=== PATIENT | male | born 1955 | race Caucasian/White ===

== ENCOUNTER 2020-12-15 06:47 | Emergency (ER) | payer BC ==
[2020-12-15] MEDS ORDERED: Aspirin 81 MG Tab.Chew ONE (06:57)
[2020-12-15] MEDS ORDERED: HYDROmorphone 1 MG/ML Syringe IVPUSH ONE (07:11)
[2020-12-15] MEDS ORDERED: Metoclopramide 10 MG/2 ML SDV IVPUSH ONE (07:11)
--- NOTE | 2020-12-15 07:11 | EDM.PDOC ---
ED HPI GENERAL MEDICAL PROBLEM - General Chief Complaint: Chest Pain Stated Complaint: CHEST PAIN Time Seen by Provider: 12/15/20 07:01 Source of Information: Reports: Patient History Limitations: Reports: No Limitations - History of Present Illness INITIAL COMMENTS - FREE TEXT/NARRATIVE: 65 year old male presents to the ED at 0655 hrs this am. he re[ports developing central chest pain /preasure while eating his breakfast at local restaurant this am. He reports he has had 3-4 cups of coffee and ate about 3/4 of his breakfast before the pain started. He lost color and friends asked if he was feeling OK.Pain central chest radiating to the Lt medial arm. No nausea or vomiting. Pain now is a little worse than when it started and he reports it to be 5/10.No past history or family history of heart disease. Over weight. Hypertensive. Quit smoking cigarettes in 1992. Onset: Today, Sudden Onset Date: 12/15/20 Onset Time: 06:00 Duration: Minutes:, Getting Worse Location: Reports: Chest Quality: Reports: Ache, Pressure Severity: Moderate Improves with: Reports: None Worsens with: Reports: None Context: Denies: Activity, Exercise, Lifting, Sick Contact, Trauma, Other Associated Symptoms: Reports: Chest Pain, Diaphoresis, Loss of Appetite, Weakness, Other. 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 (see below) Chest Pain Score (Numeric/FACES): 4 - Related Data Allergies Allergy/AdvReac Type Severity Reaction Status Date / Time No Known Allergies Allergy Verified 12/15/20 07:07 Past Medical History Cardiovascular History: Reports: Hypertension - Past Surgical History GI Surgical History: Reports: Appendectomy Musculoskeletal Surgical History: Reports: ORIF Social & Family History - Tobacco Use Tobacco Use Status *Q: Former Tobacco User (quit 1991) - Alcohol Use Alcohol Use History: Yes Days Per Week of Alcohol Use: 2 - Living Situation & Occupation Living situation: Reports: Occupation: Employed ED ROS GENERAL - Review of Systems Review Of Systems: See Below Constitutional: Reports: Diaphoresis. Denies: Fever, Chills, Malaise, Weakness, Fatigue, Decreased Appetite, Weight Loss HEENT: Reports: No Symptoms Respiratory: Reports: Shortness of Breath. Denies: Wheezing, Pleuritic Chest Pain, Cough, Sputum, Hemoptysis Cardiovascular: Reports: Chest Pain, Blood Pressure Problem, Dyspnea on Exertion (sometimes). Denies: Claudication, Edema, Lightheadedness, Orthopnea Endocrine: Reports: No Symptoms GI/Abdominal: Reports: No Symptoms : Reports: Frequency, Other Musculoskeletal: Reports: Back Pain, Joint Pain, Muscle Stiffness Skin: Reports: No Symptoms Neurological: Reports: No Symptoms Psychiatric: Reports: No Symptoms Hematologic/Lymphatic: Reports: No Symptoms Immunologic: Reports: No Symptoms ED EXAM, GENERAL - Physical Exam Exam: See Below Exam Limited By: No Limitations General Appearance: Alert, WD/WN, Mild Distress, Other (vitals reveal a temp of 35.5. Heart rate of 95 and respiratory rate of 20 with 02 sats of 99% on room air. BP136/101.) #1 Interpretation EKG Date: 12/15/20 Time: 06:55 Rhythm: NSR Rate (Beats/Min): 78 [place]: Normal P-Wave: Present QRS: Other ST-T: Other (Diffuse repolarization pattern. marked elevationST segment depression with T wave inversion leads V1 and V2.ST segment elevation leads 2,3 and AVF) QT: Normal EKG Interpretation Comments: Abnormal ECG. Acute infro posterior wall ND. Course - Vital Signs Last Recorded V/S: Last Vital Signs Temp 35.5 C L 12/15/20 07:02 Pulse 95 12/15/20 07:02 Resp 20 12/15/20 07:02 BP 136/101 H 12/15/20 07:02 Pulse Ox 99 12/15/20 07:02 - Orders/Labs/Meds Orders: Active Orders 24 hr Category Date Time Status EKG 12 Lead [EKG Documentation Completion] [RC] STAT Care 12/15/20 07:09 Active Chest 1V Frontal [CR] Stat Exams 12/15/20 07:04 Taken URINALYSIS W/MICROSCOPIC [UA W/MICROSCOPIC] [URIN] Stat Lab 12/15/20 07:25 Ordered Heparin Sodium/D5W [Heparin 25,000 Units in D5W 500 ML] Med 12/15/20 07:15 Active 25,000 units in 500 ml IV TITRATE Nitroglycerin/D5W [Nitroglycerin 25 MG/D5W 250 ML] Med 12/15/20 07:15 Active 25 mg in 250 ml IV TITRATE Sodium Chloride 0.9% [Normal Saline] 1,000 ml Med 12/15/20 07:15 Active IV ASDIRECTED Medication Orders Sodium Chloride (Normal Saline) 1,000 mls @ 100 mls/hr IV ASDIRECTED МАРИЯ Last Admin: 12/15/20 07:14 Dose: 100 mls/hr Documented by: BOBY Nitroglycerin/Dextrose (Nitroglycerin 25 Mg/D5w 250 Ml) 25 mg in 250 mls @ 6 mls/hr IV TITRATE МАРИЯ; Protocol Last Titration: 12/15/20 08:08 Dose: 20 mcg/min, 12 mls/hr Documented by: Titration: 12/15/20 07:57 Dose: 15 mcg/min, 9 mls/hr Documented by: Admin: 12/15/20 07:20 Dose: 10 mcg/min, 6 mls/hr Documented by: BOBY Heparin Sodium/Dextrose (Heparin 25,000 Units In D5w 500 Ml) 25,000 units in 500 mls @ 20 mls/hr IV TITRATE МАРИЯ Last Admin: 12/15/20 07:20 Dose: 1,000 units/hr, 20 mls/hr Documented by: BOBY Cosigned by: HONEY Labs: Laboratory Tests 12/15/20 12/15/20 12/15/20 Range/Units 06:45 06:45 06:45 WBC 8.95 (4.23-9.07) K/mm3 RBC 5.37 (4.63-6.08) M/mm3 Hgb 16.0 (13.7-17.5) gm/dl Hct 50.6 (40.1-51.0) % MCV 94.2 H (79.0-92.2) fl MCH 29.8 (25.7-32.2) pg MCHC 31.6 L (32.2-35.5) g/dl RDW Std Deviation 48.0 H (35.1-43.9) fL Plt Count 167 (163-337) K/mm3 MPV 12.2 (9.4-12.3) fl Neut % (Auto) 58.4 (34.0-67.9) % Lymph % (Auto) 22.7 (21.8-53.1) % [place] % (Auto) 15.8 H (5.3-12.2) % Eos % (Auto) 2.2 (0.8-7.0) Baso % (Auto) 0.6 (0.1-1.2) % Neut # (Auto) 5.23 (1.78-5.38) K/mm3 Lymph # (Auto) 2.03 (1.32-3.57) K/mm3 [place] # (Auto) 1.41 H (0.30-0.82) K/mm3 Eos # (Auto) 0.20 (0.04-0.54) K/mm3 Baso # (Auto) 0.05 (0.01-0.08) K/mm3 PT 10.6 (9.7-12.0) SECONDS INR 0.99 APTT (21.7-31.4) SECONDS Sodium 142 (136-145) mEq/L Potassium 3.6 (3.5-5.1) mEq/L Chloride 104 (98-107) mEq/L Carbon Dioxide 29 (21-32) mEq/L Anion Gap 12.6 (5-15) BUN 13 (7-18) mg/dL Creatinine 1.0 (0.7-1.3) mg/dL Est Cr Clr Drug Dosing 67.34 mL/min Estimated GFR (MDRD) > 60 (>60) mL/min BUN/Creatinine Ratio 13.0 L (14-18) Glucose 111 (80-115) mg/dL Calcium 8.8 (8.5-10.1) mg/dL Magnesium 2.0 (1.8-2.4) mg/dl Total Bilirubin 0.9 (0.2-1.0) mg/dL AST 28 (15-37) U/L ALT 50 (16-63) U/L Alkaline Phosphatase 67 (46-116) U/L CK-MB (CK-2) 1.5 (0-3.6) ng/ml Troponin I 0.021 (0.00-0.056) ng/mL C-Reactive Protein 0.8 (<1.0) mg/dL NT-Pro-B Natriuret Pep (0-125) pg/mL Total Protein 7.6 (6.4-8.2) g/dl Albumin 3.7 (3.4-5.0) g/dl Globulin 3.9 gm/dL Albumin/Globulin Ratio 1.0 (1-2) SARS-CoV-2 RNA (ANDER) (NEGATIVE) 12/15/20 12/15/20 12/15/20 Range/Units 06:45 06:45 07:21 WBC (4.23-9.07) K/mm3 RBC (4.63-6.08) M/mm3 Hgb (13.7-17.5) gm/dl Hct (40.1-51.0) % MCV (79.0-92.2) fl MCH (25.7-32.2) pg MCHC (32.2-35.5) g/dl RDW Std Deviation (35.1-43.9) fL Plt Count (163-337) K/mm3 MPV (9.4-12.3) fl Neut % (Auto) (34.0-67.9) % Lymph % (Auto) (21.8-53.1) % [place] % (Auto) (5.3-12.2) % Eos % (Auto) (0.8-7.0) Baso % (Auto) (0.1-1.2) % Neut # (Auto) (1.78-5.38) K/mm3 Lymph # (Auto) (1.32-3.57) K/mm3 [place] # (Auto) (0.30-0.82) K/mm3 Eos # (Auto) (0.04-0.54) K/mm3 Baso # (Auto) (0.01-0.08) K/mm3 PT (9.7-12.0) SECONDS INR APTT 26.3 (21.7-31.4) SECONDS Sodium (136-145) mEq/L Potassium (3.5-5.1) mEq/L Chloride (98-107) mEq/L Carbon Dioxide (21-32) mEq/L Anion Gap (5-15) BUN (7-18) mg/dL Creatinine (0.7-1.3) mg/dL Est Cr Clr Drug Dosing mL/min Estimated GFR (MDRD) (>60) mL/min BUN/Creatinine Ratio (14-18) Glucose (80-115) mg/dL Calcium (8.5-10.1) mg/dL Magnesium (1.8-2.4) mg/dl Total Bilirubin (0.2-1.0) mg/dL AST (15-37) U/L ALT (16-63) U/L Alkaline Phosphatase (46-116) U/L CK-MB (CK-2) (0-3.6) ng/ml Troponin I (0.00-0.056) ng/mL C-Reactive Protein (<1.0) mg/dL NT-Pro-B Natriuret Pep 69 (0-125) pg/mL Total Protein (6.4-8.2) g/dl Albumin (3.4-5.0) g/dl Globulin gm/dL Albumin/Globulin Ratio (1-2) SARS-CoV-2 RNA (ANDER) Negative (NEGATIVE) Meds: Medications Generic Name Dose Route Start Last Admin Trade Name Freq PRN Reason Stop Dose Admin Sodium Chloride 1,000 mls @ 100 mls/hr 12/15/20 07:15 12/15/20 07:14 Normal Saline IV 100 mls/hr ASDIRECTED МАРИЯ Administration Nitroglycerin/Dextrose 25 mg in 250 mls @ 6 mls/hr 12/15/20 07:15 12/15/20 08:08 Nitroglycerin 25 Mg/D5w 250 Ml IV 20 mcg/min TITRATE МАРИЯ 12 mls/hr Titration Protocol 10 MCG/MIN Heparin Sodium/Dextrose 25,000 units in 500 mls @ 20 mls/hr 12/15/20 07:15 12/15/20 07:20 Heparin 25,000 Units In D5w 500 Ml IV 1,000 units/hr TITRATE МАРИЯ 20 mls/hr Administration 1,000 UNITS/HR Discontinued Medications Generic Name Dose Route Start Last Admin Trade Name Freq PRN Reason Stop Dose Admin Aspirin Confirm 12/15/20 06:57 12/15/20 07:23 Aspirin Administered 12/15/20 06:58 Not Given Dose 324 mg .ROUTE .STK-MED ONE Aspirin 324 mg 12/15/20 07:22 12/15/20 07:23 Aspirin PO 12/15/20 07:23 324 mg ONETIME ONE Administration Clopidogrel Bisulfate 300 mg 12/15/20 07:15 12/15/20 07:21 Plavix PO 12/15/20 07:16 300 mg ONETIME ONE Administration Fentanyl 50 mcg 12/15/20 08:07 12/15/20 08:10 Sublimaze IVPUSH 12/15/20 08:08 50 mcg ONETIME ONE Administration Fentanyl Confirm 12/15/20 08:08 12/15/20 08:19 Sublimaze Administered 12/15/20 08:09 Not Given Dose 100 mcg .ROUTE .STK-MED ONE Fentanyl 50 mcg 12/15/20 08:18 12/15/20 08:18 Sublimaze IVPUSH 12/15/20 08:19 50 mcg ONETIME ONE Administration Heparin Sodium (Porcine) 4,000 units 12/15/20 07:14 12/15/20 07:20 Heparin Sodium IVPUSH 12/15/20 07:15 4,000 units .BOLUS ONE Administration Hydromorphone HCl 1 mg 12/15/20 07:11 12/15/20 07:16 Dilaudid IVPUSH 12/15/20 07:12 1 mg ONETIME ONE Administration Metoclopramide HCl 10 mg 12/15/20 07:11 12/15/20 07:15 Reglan IVPUSH 12/15/20 07:12 10 mg ONETIME ONE Administration Tenecteplase Confirm 12/15/20 06:57 12/15/20 07:12 Tnkase Administered 12/15/20 06:58 50 mg Dose Administration 50 mg .ROUTE .STK-MED ONE - Radiology Interpretation Free Text/Narrative:: 65 year old male presents to the ED with acute onset of central chest preasure and Lt medial arm pain about 0620 hours this am while eating breakfast at a local restaurant. No similar type problems. ECG reveals evidence of an acute infero posterior wall ND. STEMI. Given 324mg aspirin chewed. nitro drip started at 10mcg/min. He has no contraindications to thrombolytics. Will give Tenectaplase 50mg IV per protocol. Plavix 300mg po. Heparin 4000 unit bolus and then drip at 1000 units per hour. Given Reglan 10mg IV for nausea and Dilaudid 1mg IV for pain relief. Plan: routine labs ordered and CXR to be done portably. 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 he has accepted care. patient will be transported per ground ambulance as soon as possible. portable CXR reveals moderate cardiomegally and blunted Lt costophrenic angle due to overlying soft tissue. Mild diffuse vascular congestion pattern. 12/15/20 08:05: patient developed marked increase in central chest pain and recieved two doses of fentanyl 50mcg IV for pain control. ECG reveals marked increase in ST segment elevation in the inferior wall compatable with evolving ND. Ambulance is now here to provided transpoPatient developed increasing central chest painrt to [facility] in [facility]. Departure - Departure Time of Disposition: 08:20 Disposition: DC/Tfer to Acute Hospital 02 Reason for Transfer *Q: Primary PCI Indicated Condition: Serious Clinical Impression: Acute ND Qualifiers: Myocardial infarction type: ST elevation myocardial infarction Involved coronary artery: right coronary artery Qualified Code(s): I21.11 - ST elevation (STEMI) myocardial infarction involving right coronary artery Referrals: Tiffani Gonzalez NP [Primary Care Provider] - Forms: ED Department Discharge Additional Instructions: Patient transferred to [facility] in [facility] under cardiology care. 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 Sepsis Event Note (ED) - Focused Exam Vital Signs: Vital Signs Temp Pulse Resp BP Pulse Ox 12/15/20 07:02 35.5 C L 95 20 136/101 H 99 - My Orders Last 24 Hours: My Active Orders 12/15/20 07:04 Chest 1V Frontal [CR] Stat 12/15/20 07:09 EKG 12 Lead [EKG Documentation Completion] [RC] STAT 12/15/20 07:15 Heparin Sodium/D5W [Heparin 25,000 Units in D5W 500 ML] 25,000 units in 500 ml IV TITRATE Nitroglycerin/D5W [Nitroglycerin 25 MG/D5W 250 ML] 25 mg in 250 ml IV TITRATE Sodium Chloride 0.9% [Normal Saline] 1,000 ml IV ASDIRECTED 12/15/20 07:25 URINALYSIS W/MICROSCOPIC [UA W/MICROSCOPIC] [URIN] Stat - Assessment/Plan Last 24 Hours: My Active Orders 12/15/20 07:04 Chest 1V Frontal [CR] Stat 12/15/20 07:09 EKG 12 Lead [EKG Documentation Completion] [RC] STAT 12/15/20 07:15 Heparin Sodium/D5W [Heparin 25,000 Units in D5W 500 ML] 25,000 units in 500 ml IV TITRATE Nitroglycerin/D5W [Nitroglycerin 25 MG/D5W 250 ML] 25 mg in 250 ml IV TITRATE Sodium Chloride 0.9% [Normal Saline] 1,000 ml IV ASDIRECTED 12/15/20 07:25 URINALYSIS W/MICROSCOPIC [UA W/MICROSCOPIC] [URIN] Stat
[2020-12-15] MEDS: Tenecteplase 50 MG Kit ONE ×2 (07:12→10:25)
[2020-12-15] MEDS ORDERED: Heparin Sodium 5,000 Units/ML Vial IVPUSH ONE (07:14)
[2020-12-15] MEDS ORDERED: Clopidogrel 75 MG Tab PO ONE (07:15)
[2020-12-15] MEDS ORDERED: Heparin Sodium/D5W 25,000 UNITS/500 ML BAG IV SCH (07:15)
[2020-12-15] MEDS ORDERED: Sodium Chloride 0.9% 1,000 ML IV SCH (07:15)
[2020-12-15] MEDS ORDERED: Nitroglycerin/D5W 25 MG/250 ML BOTTLE IV SCH (07:15)
[2020-12-15] MEDS ORDERED: Aspirin 81 MG Tab.Chew PO ONE (07:22)
[2020-12-15] MEDS ORDERED: fentaNYL 100 MCG/2 ML SDV IVPUSH ONE ×3 (08:07→18:18)
[2020-12-15] MEDS ORDERED: fentaNYL 100 MCG/2 ML SDV ONE (08:08)
[2020-12-15] MEDS ORDERED: Tenecteplase 50 MG Kit IV ONE (08:12)
--- NOTE | 2020-12-15 09:23 | CR ---
Chest: Portable view of the chest was obtained. Comparison: No prior chest imaging. Heart size and mediastinum are within normal limits for portable technique. Very slight atelectasis is noted within the right lung base. Lungs otherwise are clear. Bony structures show nothing definitely acute. Impression: 1. Minimal right basilar atelectasis. 2. Nothing acute is identified on portable chest x-ray. Diagnostic code #2 MTDD
== END 2020-12-15 08:30 ==
LOC: JD.ED 06:47
DX: I21.11 ST elevation (STEMI) myocardial infarction involving right coronary artery (principal); I10 Essential (primary) hypertension; Z87.891 Personal history of nicotine dependence; Z20.822 Contact with and (suspected) exposure to COVID-19
CPT/HCPCS: 36415; 37195; 71045; 80053; 82553; 83735; 83880; 84484; 85025; 85610; 85730; 86140; 87635; 93005; 96365; 96368; 96375; 99285; A9270; J1170; J1644; J2765; J3010; J3101; J3490; J7030; 93010; U0002

== ENCOUNTER 2021-09-28 15:09 | Emergency (ER) | payer MEDICARE, BC ==
--- NOTE | 2021-09-28 16:10 | CR ---
Chest: Portable view of the chest was obtained. Comparison: Prior chest x-ray of 12/15/20. Heart size and mediastinum are normal. Slight atelectasis is noted within both lung bases. Lungs otherwise are clear. Bony structures show nothing acute. Impression: 1. Slight atelectasis within both lung bases. 2. Nothing acute is otherwise appreciated on portable chest x-ray. Diagnostic code #2
--- NOTE | 2021-09-28 16:24 | EDM.PDOC ---
ED HPI GENERAL MEDICAL PROBLEM - General Chief Complaint: Chest Pain Stated Complaint: CHEST PAIN X 2 DAYS Time Seen by Provider: 09/28/21 15:25 Source of Information: Reports: Patient, RN Notes Reviewed - History of Present Illness INITIAL COMMENTS - FREE TEXT/NARRATIVE: 66 yr old male has been having occasional brief episodes of L chest discomfort off and on for the past week but more so the last 2 to 3 days. Has been traveling, just got back to town, figured he had better get this checked out. Has not been otherwise ill. Hx of NH, 3 stents placed about 9 months ago. Treatments [employer]: Reports: Aspirin Left Chest Pain Score (Numeric/FACES): 2 - Related Data Allergies Allergy/AdvReac Type Severity Reaction Status Date / Time No Known Allergies Allergy Verified 12/15/20 07:07 Home Meds: Home Meds Aspirin [Halfprin] 81 mg PO DAILY 09/28/21 [History] Clopidogrel Bisulfate [Plavix] 75 mg PO DAILY 09/28/21 [History] Famotidine [Pepcid] 20 mg PO DAILY 09/28/21 [History] Leflunomide 20 mg PO DAILY 09/28/21 [History] Methotrexate 20 mg PO TU 09/28/21 [History] Propranolol [Inderal] 120 mg PO BID 09/28/21 [History] Rosuvastatin [Crestor] 20 mg PO DAILY 09/28/21 [History] Past Medical History Cardiovascular History: Reports: Hypertension, NH, Stents Musculoskeletal History: Reports: RA - Infectious Disease History Infectious Disease History: Reports: None - Past Surgical History GI Surgical History: Reports: Appendectomy Musculoskeletal Surgical History: Reports: ORIF Social & Family History - Tobacco Use Tobacco Use Status *Q: Former Tobacco User Used Tobacco, but Quit: Yes Month/Year Tobacco Last Used: 1993 - Caffeine Use Caffeine Use: Reports: Coffee, Soda - Recreational Drug Use Recreational Drug Use: No - Living Situation & Occupation Living situation: Reports: Occupation: Employed ED ROS GENERAL - Review of Systems Review Of Systems: See Below Constitutional: Denies: Fever, Chills HEENT: Reports: No Symptoms Respiratory: Denies: Shortness of Breath Cardiovascular: Reports: Chest Pain GI/Abdominal: Denies: Abdominal Pain, Nausea, Vomiting Musculoskeletal: Denies: Shoulder Pain, Arm Pain, Back Pain Skin: Reports: No Symptoms Neurological: Denies: Dizziness, Numbness, Paresthesia ED EXAM, GENERAL - Physical Exam Exam: See Below General Appearance: Alert, No Apparent Distress Head: Atraumatic Neck: Supple Respiratory/Chest: No Respiratory Distress, Lungs Clear, Normal Breath Sounds Cardiovascular: Other (frequent irregular beats) Extremities: Normal Inspection, Pedal Edema (trace bilat) Skin Exam: Warm, Dry, Normal Color #1 Interpretation EKG Date: 09/28/21 Rhythm: Other (NSR, multiple PVC's) Rate (Beats/Min): 86 [place]: Normal P-Wave: Present QRS: Normal ST-T: Normal QT: Normal Course - Vital Signs Last Recorded V/S: Last Vital Signs Temp 97.5 F 09/28/21 15:31 Pulse 87 09/28/21 15:31 Resp 19 09/28/21 15:31 BP 154/79 H 09/28/21 15:31 Pulse Ox 98 09/28/21 15:31 - Orders/Labs/Meds Labs: Laboratory Tests 09/28/21 09/28/21 Range/Units 16:09 16:09 WBC 5.52 (4.23-9.07) K/mm3 RBC 4.94 (4.63-6.08) M/mm3 Hgb 15.1 (13.7-17.5) gm/dl Hct 46.9 (40.1-51.0) % MCV 94.9 H (79.0-92.2) fl MCH 30.6 (25.7-32.2) pg MCHC 32.2 (32.2-35.5) g/dl RDW Std Deviation 50.4 H (35.1-43.9) fL Plt Count 112 L (163-337) K/mm3 MPV 12.4 H (9.4-12.3) fl Neut % (Auto) 68.6 H (34.0-67.9) % Lymph % (Auto) 14.9 L (21.8-53.1) % [place] % (Auto) 13.4 H (5.3-12.2) % Eos % (Auto) 2.5 (0.8-7.0) Baso % (Auto) 0.4 (0.1-1.2) % Neut # (Auto) 3.79 (1.78-5.38) K/mm3 Lymph # (Auto) 0.82 L (1.32-3.57) K/mm3 [place] # (Auto) 0.74 (0.30-0.82) K/mm3 Eos # (Auto) 0.14 (0.04-0.54) K/mm3 Baso # (Auto) 0.02 (0.01-0.08) K/mm3 Sodium 145 (136-145) mEq/L Potassium 3.6 (3.5-5.1) mEq/L Chloride 109 H (98-107) mEq/L Carbon Dioxide 24 (21-32) mEq/L Anion Gap 15.6 H (5-15) BUN 10 (7-18) mg/dL Creatinine 0.9 (0.7-1.3) mg/dL Est Cr Clr Drug Dosing 79.17 mL/min Estimated GFR (MDRD) > 60 (>60) mL/min BUN/Creatinine Ratio 11.1 L (14-18) Glucose 88 (70-99) mg/dL Calcium 8.5 (8.5-10.1) mg/dL Total Bilirubin 1.0 (0.2-1.0) mg/dL AST 27 (15-37) U/L ALT 38 (16-63) U/L Alkaline Phosphatase 61 (46-116) U/L Troponin I < 0.017 (0.00-0.056) ng/mL Total Protein 6.8 (6.4-8.2) g/dl Albumin 3.4 (3.4-5.0) g/dl Globulin 3.4 gm/dL Albumin/Globulin Ratio 1.0 (1-2) - Re-Assessments/Exams Free Text/Narrative Re-Assessment/Exam: 10/01/21 15:48 trop neg. CXR normal. Somewhat frequent PVC's noted on moniter at time of exam, they are demonstrated on his EKG and still present at time of discharge. Have discussed this with patient. I do believe the is feeling the discomfort that can go with those when they occur. Discharge instr. as documented. Departure - Departure Time of Disposition: 17:22 Disposition: Home, Self-Care 01 Condition: Fair Clinical Impression: PVCs (premature ventricular contractions), Atypical chest pain Instructions: Premature Ventricular Contraction Referrals: PCP,None [Primary Care Provider] - Forms: ED Department Discharge Additional Instructions: Continue current medications. Your potassium was mildly low. Eat more bananas this next few days. Other fruit, vegetables and potatoes are also high in potassium. Get back to regular walking for exercise. Follow up clinic if these symptoms don't resolve as expected. Return to ED as needed if symptoms worsening in any way.
== END 2021-09-28 17:31 | disposition home or self-care (01) ==
LOC: JD.ED 15:09
DX: R07.89 Other chest pain (principal); I49.3 Ventricular premature depolarization; I10 Essential (primary) hypertension; I25.2 Old myocardial infarction; Z79.82 Long term (current) use of aspirin; Z79.02 Long term (current) use of antithrombotics/antiplatelets; Z87.891 Personal history of nicotine dependence
CPT/HCPCS: 36415; 71045; 71045-26; 80053; 84484; 85025; 93005; 99285-25